=== PATIENT | female | born 1995 | race Caucasian/White ===

== ENCOUNTER → 2016-10-04 | Outpatient (CLI) | payer OTHER ==
[~2016-10-04] MED LIST: BIRTH CONTROL PO; HYDROCODONE-AP1 EAC6 PO; NORGESTIMATE-E1 EAC1 PO
== END ==
LOC: ULTRA 09:22
DX: O26.891 Other specified pregnancy related conditions, first trimester (principal); Z3A.01 Less than 8 weeks gestation of pregnancy